=== PATIENT | male | born 1965 | race Caucasian/White ===

== ENCOUNTER 2017-12-19 09:25 | Emergency (ER) | END 2017-12-19 11:53 | disposition home or self-care (01) ==

== ENCOUNTER 2018-08-05 11:58 | Day surgery (SDC) | payer BC ==
[~2018-08-05] VITALS: Ht 162.6 cm; Wt 69.1 kg
[~2018-08-05 11:58] MED LIST: AMOX1TAB10 PO; CIPR500T4 PO; CYCL10TA7 PO; MECL12.574 PO; METO10TA92 PO; NAPR-985 PO; ONDA4TAB35 PO; TRAM50TA2 PO
[2018-08-05] MEDS ORDERED: [UNRECOGNIZED DRUG - REMARK] (13:12)
[2018-08-05 13:50] VITALS: BP 102/62; PULSE 72; RESP 20
[2018-08-05 14:02] VITALS: BP 102/70; PULSE 73; RESP 20
[2018-08-05] MEDS ORDERED: FENTAnyl 50 MCG/ML VIAL ONE (14:06)
[2018-08-05] MEDS ORDERED: MIDAZOLAM 1 MG/ML 2 ML INJ ONE ×2 (14:06)
[2018-08-05 14:10] VITALS: BP 96/70; PULSE 70; RESP 20
[2018-08-05 14:24] VITALS: BP 97/69; PULSE 69; RESP 20
== END 2018-08-05 17:14 | disposition home or self-care (01) ==
LOC: GIL 11:58
PROVIDERS: ATTEND Internal Medicine Gastroenterology
DX: Z12.11 Encounter for screening for malignant neoplasm of colon (principal); K57.30 Diverticulosis of large intestine without perforation or abscess without bleeding; K64.8 Other hemorrhoids; E78.00 Pure hypercholesterolemia, unspecified
CPT/HCPCS: 45378; J2250; J3010